=== PATIENT | female | born 1995 | race Caucasian/White ===

== ENCOUNTER 2017-12-07 21:28 | Emergency (ER) | payer MEDICAID ==
--- NOTE | 2017-12-07 21:59 | EDPHY ---
H & P Time Seen by Provider: 12/07/17 21:39 HPI/ROS: Chief complaint. Forearm laceration HPI. 22-year-old female presents emergency department with laceration to the right forearm. She initially tells me that she injured herself cutting apples. However she has multiple cutting scars on her forearm and then tells me that she self-inflicted the laceration using a bread knife. Denies any other ingestions or injuries. Previously she has been a cutter but apparently not for several years. Ambivalent about further harming herself. ROS Constitutional. no fever/chills, no weakness Eyes. no problems with vision ENT. no sore throat, no nasal drainage Cardiovascular. no chest pain Respiratory. no shortness of breath, no cough Abdominal. no abdominal pain, no nausea/vomiting, no diarrhea . no problems urinating MS. no calf pain/swelling, no neck/back pain, no joint pain Skin. Forearm laceration Lymph. no swollen glands Neuro. no headache, no dizziness, no difficulty walking or with speech Past Medical/Surgical History: Tonsillectomy Social History: Single, daily smoker, no alcohol Smoking Status: Heavy smoker Physical Exam: General Appearance: Alert well-developed female mild distress vital signs are stable Eyes: Pupils equal and round no pallor or injection. ENT, Mouth: Mucous membranes are moist. Respiratory: There are no retractions, lungs are clear to auscultation. Cardiovascular: Regular rate and rhythm. Gastrointestinal: Abdomen is soft and nontender, no masses, bowel sounds normal. Neurological: Awake and alert, sensory and motor exams grossly normal. Skin: 4 cm laceration flexor side mid right forearm. No evidence for foreign body or tendon involvement. Distal motor vascular sensitivity is intact Musculoskeletal: Neck is supple nontender. Extremities symmetrical, full range of motion. Psychiatric: Patient is oriented X 3, there is no agitation. Constitutional: Initial Vital Signs Temperature (C) 36.6 C 12/07/17 21:38 Heart Rate 71 12/07/17 21:38 Respiratory Rate 16 12/07/17 21:38 Blood Pressure 105/67 12/07/17 21:38 O2 Sat (%) 100 12/07/17 21:38 O2 Delivery Mode Room Air Allergies/Adverse Reactions: No Known Allergies Allergy (Verified 12/07/17 21:48) Home Medications: Medication Instructions Recorded Acutane 12/07/17 Bcp 12/07/17 Medical Decision Making Procedures: Procedure: Laceration repair. Verbal consent was obtained from the patient. The 4 cm laceration on the right forearm was anesthetized in the usual fashion. The wound was irrigated, draped and explored to its base with a gloved finger. There were no deep structures involved. No tendon injury was identified. The wound was repaired with nine 4- 0 prolene sutures. The wound repair was simple. The procedure was performed by myself. ED Course/Re-evaluation: Patient remained stable. The patient her father and I discussed treatment plan and care for stitches. We discussed need for mental health evaluation. They expressed understanding and agreement. Patient is placed on a 72 hr mental health hold and will be transported to [facility] for mental health evaluation. I consulted discussed case with Dr. Patel at the emergency department at [facility]. He agrees to the transfer Differential Diagnosis: Considered retained foreign body, infection potential of wound, a possible tendon laceration I have considered suicide ideation and concern for self-inflicted laceration Departure - Departure Disposition: Home, Routine, Self-Care Clinical Impression: Suicide ideation Forearm laceration Qualifiers: Encounter type: initial encounter Laterality: right Qualified Code(s): S51.811A - Laceration without foreign body of right forearm, initial encounter Condition: Good Instructions: Care For Your Stitches (ED) Additional Instructions: Keep cut clean and dry. You may shower with stitches in. Avoid immersion Return for signs of infection Stitches out 10 days Go to [facility] for mental health evaluation
--- NOTE | 2017-12-07 23:18 | EDPHY ---
H & P Stated Complaint: R WRIST LAC VS KNIFE - Personal History LMP (Females 10-55): 8-14 Days Ago Current Tetanus/Diphtheria Vaccine: Yes Current Tetanus Diphtheria and Acellular Pertussis (TDAP): Yes - Medical/Surgical History Hx Asthma: No Hx Chronic Respiratory Disease: No Hx Diabetes: No Hx Cardiac Disease: No Hx Renal Disease: No Hx Cirrhosis: No Hx Alcoholism: No Hx HIV/AIDS: No Hx Splenectomy or Spleen Trauma: No Other PMH: TONSILLECTOMY - Social History Smoking Status: Heavy smoker Time Seen by Provider: 12/07/17 21:39 HPI/ROS: Chief Complaint: Forearm laceration, suicidal ideation HPI: 26-year-old female has a self-inflicted laceration to her right forearm. Patient was seen at [facility] and had her laceration repaired. He she was placed on a mental health hold by Dr. Mccormack and sent here for mental health evaluation. Patient has a bit 1 thoughts about suicidality. She has a history of cutting in the past. ROS: 10 point Review of Systems is negative except as noted in the HPI. PMH: Depression Social History: No smoking, no alcohol, no recreational drug use Family History: non-contributory Physical Exam: Gen: Awake, Alert, No Distress HEENT: Nose: no rhinorrhea Eyes: PERRLA, EOMI Mouth: Moist mucosa Neck: Supple, no JVD Chest: nontender, lungs clear to auscultation Heart: S1, S2 normal, no murmur Abd: Soft, non-tender, no guarding Back: no CVA tenderness, no midline tenderness Ext: no edema, right forearm bandage in place. Skin: no rash Neuro: CN II-XII intact, Sensation grossly intact, Strength 5/5 in bilateral upper and lower extremities (Connor Patel) Constitutional: Initial Vital Signs Temperature (C) 36.6 C 12/07/17 21:38 Heart Rate 71 12/07/17 21:38 Respiratory Rate 16 12/07/17 21:38 Blood Pressure 105/67 12/07/17 21:38 O2 Sat (%) 100 12/07/17 21:38 O2 Delivery Mode Room Air Allergies/Adverse Reactions: No Known Allergies Allergy (Verified 12/07/17 21:48) Home Medications: Medication Instructions Recorded Acutane 12/07/17 Bcp 12/07/17 Medical Decision Making Other Provider: I assumed care of the patient at 700 pending psychiatric disposition. Update at 9:30 a.m.: The patient was seen by Psychiatry. The case was discussed with Dr. Mcdonald who felt she did not meet criteria for 72 hr hold and vacated the mental health hold. The patient does contract for safety and presents to the ED after an episode of cutting. She has a safety plan in place. She has been provided outpatient resources. (Calvin Howe) 0[address] patient signed out to Dr. Howe pending mental health evaluation. No issues during my care this patient overnight. (Connor Patel) - Data Points Laboratory Results: Laboratory Results 12/07/17 23:26 12/07/17 23:26 Medications Given: Discontinued Medications Ibuprofen (Motrin) 600 mg PO EDNOW ONE Stop: 12/08/17 08:23 Last Admin: 12/08/17 08:26 Dose: 600 mg Lorazepam (Ativan) 1 mg PO EDNOW ONE Stop: 12/08/17 02:53 Last Admin: 12/08/17 02:54 Dose: 1 mg Departure - Departure Disposition: Home, Routine, Self-Care Clinical Impression: Suicide ideation Forearm laceration Qualifiers: Encounter type: initial encounter Laterality: right Qualified Code(s): S51.811A - Laceration without foreign body of right forearm, initial encounter Condition: Good Instructions: Care For Your Stitches (ED) Additional Instructions: Keep cut clean and dry. You may shower with stitches in. Avoid immersion Return for signs of infection Stitches out 10 days Go to [facility] for mental health evaluation
[2017-12-07 23:50] LABS: PLATELET COUNT 284 10^3/uL (150-400)
[2017-12-08] MEDS ORDERED: LORazepam 1 MG TAB PO ONE (02:52)
[2017-12-08] MEDS ORDERED: diphenhydrAMINE 50 MG CAP PO ONE (04:28)
[2017-12-08 08:21] VITALS: BP 92/64
[2017-12-08] MEDS ORDERED: IBUPROFEN 600 MG TAB PO ONE (08:22)
--- NOTE | 2017-12-08 10:28 | ASMTTCLDSP ---
TLC Discharge Disposition Disposition: Answers: Discharge If Answers: Yes DISCHARGED: Patient/family given suicide hotline info & [employer] brochure? Disposition Notes: Notes: Pt initially opposed to out-pt therapy and psychiatric medications. She did agree to consider both. She was given information on [facility] and the name of a private therapist who accepts Medicaid. Pt was encouraged to seek an appt with her PCP and discuss medication options for her insomnia. Pt reviewed her coping strategies of physical activities and stated she and her father were setting up a punching bag for her. Discharge Concerns/Recommendations: Notes: In consultation with [facility] ED physician, Zelda Jang on-call psychiatrist,Dr Chica Meza MD both concurred that Pt does not appear to meet 27-65 criteria requiring psychiatric hospitalization as Pt does not appear to be an imminent risk of harm to self/others/due to grave disability due to a mental illness condition. provided telephone order read back vacating M1 hold at 8:30AM. Was patient given the Answers: Not applicable Inpatient Behavioral Health Prohibited Belongings List while in the ED? Psychiatrist vacating M1 Dr Chica meza MD Hold: Date and time M1 hold 12/08/2017 08:30 AM vacated (time format is hh:mm): Type of Hold: Answers: M1/72-hour Hold Hold initiated by: Answers: Other Notes: Physician at [facility] Date Signed: 12/08/2017 10:27 AM Electronically Signed By:Kelin Fonseca
== END 2017-12-08 09:58 | disposition home or self-care (01) ==
LOC: EEVIPCON 21:28 → CED 21:28
PROC: 0HQDXZZ Repair Right Lower Arm Skin, External Approach (ICD-10-PCS; principal; 2017-12-07)
PROC: GZ11ZZZ Psychological Tests, Personality and Behavioral (ICD-10-PCS; 2017-12-07)
DX: S51.811A Laceration without foreign body of right forearm, initial encounter (principal); R45.851 Suicidal ideations; X78.9XXA Intentional self-harm by unspecified sharp object, initial encounter
CPT/HCPCS: 80305; G0480

== ENCOUNTER 2018-02-17 17:41 | Emergency (ER) | payer MEDICAID ==
[2018-02-17] MEDS ORDERED: ACETAMINOPHEN 500 MG TAB PO ONE (17:59)
[2018-02-17] MEDS ORDERED: IBUPROFEN 600 MG TAB PO ONE (17:59)
--- NOTE | 2018-02-17 18:03 | EDPHY ---
H & P Time Seen by Provider: 02/17/18 17:44 HPI/ROS: HPI Flu-like symptoms. 22-year-old female by private vehicle with her father. This patient reports that over the last 2 weeks she has had low-grade intermittent fever. She reports that over the last 3 days she developed body aches followed by a more persistent and high fever today. She has had a mild intermittent dry cough. No nausea or vomiting. No urinary complaints. She denies any ill contacts. No foreign travel. She is not immune compromised. She has had a mild sore throat. ROS: Constitutional: As above. No weakness. Eyes: No discharge. No changes in vision. ENT: As above. No nasal congestion or rhinorrhea. Respiratory: As above. No shortness of breath. Cardiac: No chest pain, no palpitations. Gastrointestinal: No abdominal pain, no vomiting, no diarrhea. Genitourinary: No hematuria. No dysuria or increased frequency with urination. Musculoskeletal: No back pain. No neck pain. As above. Skin: No rashes. Neurological: No headache. No focal weakness or altered sensation. Past medical history: No significant past medical history. She is on control pills. No other prescription medications. Social history: Nonsmoker. No alcohol. Here with her father. Physical Exam: General Appearance: Alert, no distress. This patient is responding to questions appropriately and in full sentences. This patient appears well- hydrated and well-nourished. Eyes: Pupils equal and round no pallor or injection. No lid edema, erythema or injection. ENT, Mouth: Mucous membranes are moist. The pharyngeal tissues are unremarkable. No edema or swelling. No asymmetry suggestive of abscess. No erythema or exudates. No cervical, submental, submandibular lymphadenopathy. Respiratory: There are no retractions, lungs are clear to auscultation with good air movement bilaterally. Cardiovascular: Regular rate and rhythm. No murmur. Neurological: Motor sensory function is grossly intact. Cranial nerves are normal. Gait is normal. Skin: Warm and dry, no rashes. Musculoskeletal: Neck is supple and nontender. Extremities are symmetrical. All joints range without pain or impingement. Psychiatric: No agitation. No depression. Database: EKG: Imaging: Chest x-ray PA and lateral; the cardiac mediastinal silhouette is unremarkable. No evidence of infiltrate or pneumothorax. No acute cardiopulmonary disease process noted. Interpreted by me. Procedures: Emergency department course: Triage vital signs reviewed. She is borderline febrile at 37.5. She is mildly tachycardic at 103. Vital signs are otherwise normal. She will be given 1 g of Tylenol orally and 600 mg of ibuprofen. Rapid strep, rapid flu influenza assays to be obtained. Chest x-ray to be obtained. 6:40 p.m., the patient was re-evaluated. She is resting comfortably at this time. Her rapid strep was negative. Her influenza assay was negative. Her chest x-ray was unremarkable. I discussed results of the studies with her. She appears well. Clearly not toxic. She feels comfortable going home and I feel she is safe for discharge. I discussed a diagnosis of viral syndrome with her and supportive care as treatment for that. Follow-up and return to emergency department precautions were reviewed with her. All of her questions were answered. She was discharged from the emergency department in good condition. Differential Diagnosis: The differential diagnosis on this patient includes but is not limited to influenza, other viral syndrome, streptococcal pharyngitis, pneumonia. This represents a partial list of diagnoses considered. These considerations are based on history, physical exam, past history, reassessment and diagnostic testing. Smoking Status: Current some day smoker Constitutional: Initial Vital Signs Temperature (C) 37.5 C 02/17/18 17:48 Heart Rate 103 H 02/17/18 17:48 Respiratory Rate 16 02/17/18 17:48 Blood Pressure 121/81 H 02/17/18 17:48 O2 Sat (%) 96 02/17/18 17:48 O2 Delivery Mode Room Air Allergies/Adverse Reactions: No Known Allergies Allergy (Verified 02/17/18 17:48) Home Medications: Medication Instructions Recorded Enskyce 28 Tablet 02/17/18 Medical Decision Making - Diagnostics Imaging Results: Imaging Impressions Chest X-Ray 02/17/18 17:59 Impression: Negative chest.. - Data Points Medications Given: Discontinued Medications Acetaminophen (Tylenol) 1,000 mg PO EDNOW ONE Stop: 02/17/18 18:00 Last Admin: 02/17/18 18:04 Dose: 1,000 mg Ibuprofen (Motrin) 600 mg PO EDNOW ONE Stop: 02/17/18 18:00 Last Admin: 02/17/18 18:05 Dose: 600 mg Point of Care Test Results: Influenza PCR Flu Nasal Swab Collection Date 02/17/18 Flu Nasal Swab Collection Time 17:51 Influenza A Result Not Detected Influenza B Result Not Detected Strep Strep Throat Swab Collection 02/17/18 Date Strep Throat Swab Swab 17:51 Collection Time Strep Result Not Detected Departure - Departure Disposition: Home, Routine, Self-Care Clinical Impression: Viral syndrome Condition: Good Instructions: Viral Syndrome (ED) Additional Instructions: Read and follow provided instructions. Follow-up with your primary care physician in 1-2 days for re-evaluation. Return to the emergency department for worsening symptoms or other serious concerns. Adult Pain & Fever Control: We recommend Acetaminophen (Tylenol) and Ibuprofen (Motrin,Advil) for pain and fever control. When fever is high or pain severe, both drugs can be used at the same time, but at different intervals. Please note the time differences. Your dose is: Acetaminophen 650mg every 6 hours for 2 days as needed for fever. Ibuprofen 400-600 mg every 6 hours with food for fever and body aches for 3 days only. Note: do not take Acetaminophen with Hydrocodone (Vicodin, Lortab) or Oycodone (Percocet). These medications also contain Acetaminophen. No more than 3000mg of Acetaminophen should be taken in 24 hours (for an adult). Referrals: ALEX FARFAN [Other] - As per Instructions Stand Alone Forms: Work Excuse
[2018-02-17 18:53] VITALS: BP 111/64
== END 2018-02-17 18:45 | disposition home or self-care (01) ==
LOC: CED 17:41
DX: B34.9 Viral infection, unspecified (principal); R50.9 Fever, unspecified; F17.200 Nicotine dependence, unspecified, uncomplicated
CPT/HCPCS: 71046-PO

== ENCOUNTER 2018-02-24 16:15 | Emergency (ER) | payer MEDICAID ==
[2018-02-24 16:22] VITALS: BP 132/74
--- NOTE | 2018-02-24 16:24 | EDPHY ---
H & P Stated Complaint: sore throat, left eye redness, sinus congestion started 4 days ago Time Seen by Provider: 02/24/18 16:19 HPI/ROS: 22-year-old female presents complaining of multiple symptoms including sore throat, nasal congestion, a sense that her ears are clogged bilaterally, redness in her left eye for several days. She has also had a cough with minimal phlegm. Patient states her eye redness is actually dramatically improved but lasted about 4 days. No fevers or chills. Review of systems As per HPI-positive URI symptoms General no fever no chills no weakness HEENT no eye pain no eye discharge. Positive eye redness, positive sore throat Respiratory positive cough, no shortness of breath Cardiac no chest pain, no peripheral edema GI no abdominal pain, no diarrhea, no constipation, no nausea, no vomiting no flank pain, no hematuria, no dysuria Musculoskeletal no myalgias, no joint pain Heme no easy bruising, no easy bleeding Endo no polyuria, no polydipsia Skin no rashes, no pruritus Neuro no syncope, no dizziness, no headaches Psych is no suicidal ideation, no homicidal ideation Source: Patient Exam Limitations: No limitations - Personal History LMP (Females 10-55): 1-7 Days Ago Tetanus Vaccine Date: within 10 years - Medical/Surgical History Hx Asthma: No Hx Chronic Respiratory Disease: No Hx Diabetes: No Hx Cardiac Disease: No Hx Renal Disease: No Hx Cirrhosis: No Hx Alcoholism: No Hx HIV/AIDS: No Hx Splenectomy or Spleen Trauma: No Other PMH: TONSILLECTOMY - Family History Significant Family History: No pertinent family hx - Social History Smoking Status: Current some day smoker Alcohol Use: Occasionally Drug Use: None - Physical Exam Exam: 22-year-old female Alert and oriented nontoxic appearance, no acute distress afebrile Atraumatic normocephalic Extraocular muscles intact, anicteric Nares mild yellowish discharge Oropharynx mild erythema no tonsillar swelling no exudate no uvular deviation, tolerating own secretions Neck supple no lymphadenopathy Lungs clear to auscultation bilaterally Heart regular rate and rhythm Abdomen normoactive bowel sounds soft nontender Extremities no cyanosis clubbing or edema Skin no rash Constitutional: Initial Vital Signs Temperature (C) 36.8 C 02/24/18 16:20 Heart Rate 100 11/11/18 16:20 Respiratory Rate 18 02/24/18 16:20 Blood Pressure 132/74 H 02/24/18 16:20 O2 Sat (%) 97 02/24/18 16:20 O2 Delivery Mode Room Air Allergies/Adverse Reactions: No Known Allergies Allergy (Verified 02/24/18 16:20) Home Medications: Medication Instructions Recorded Enskyce 28 Tablet 02/17/18 Medical Decision Making ED Course/Re-evaluation: Patient seen and evaluated for multiple symptoms including sore throat, nasal and ear congestion, mild cough, eye redness. Impression Viral syndrome Plan Discharge home Rest, fluids, acetaminophen as needed for fever, decongestant as needed for congestion Follow-up with her primary care physician in the next 3-5 days if he continued to feel symptoms Return to the emergency department as needed Patient requested work note. Differential Diagnosis: Differential diagnosis considered but not limited to: Pharyngitis, bronchitis, conjunctivitis, pneumonia, viral syndrome, URI Departure - Departure Disposition: Home, Routine, Self-Care Clinical Impression: Viral syndrome, URI (upper respiratory infection) Condition: Good Instructions: Upper Respiratory Infection (ED), Viral Syndrome (ED) Referrals: ADOLPH JOHNSON [Other] - As per Instructions Stand Alone Forms: Work Excuse
== END 2018-02-24 16:41 | disposition home or self-care (01) ==
LOC: CED 16:15
DX: J06.9 Acute upper respiratory infection, unspecified (principal); R09.81 Nasal congestion; Z72.0 Tobacco use; R05 Cough